=== PATIENT | male | born 1955 ===

== ENCOUNTER 2021-01-29 10:26 | Day surgery (SDC) | payer OTHER ==
[~2021-01-29] VITALS: Ht 180.3 cm; Wt 104.5 kg
[2021-01-29 09:25] VITALS: BP 154/89
[~2021-01-29 10:26] MED LIST: MIDAZolam 1 MG/ML 5ML VIAL ONE; fentaNYL/PF 50MCG/1 ML 2ML syringe ONE
[2021-01-29 10:45] VITALS: BP 145/71
[2021-01-29 10:55] VITALS: BP 119/63
[2021-01-29 11:05] VITALS: BP 111/69
[2021-01-29 11:15] VITALS: BP 125/63
== END 2021-01-29 11:20 | disposition home or self-care (01) ==
LOC: GI LAB 10:26 → EEVIPCON 10:30 → GI LAB 11:20
PROVIDERS: ATTEND Internal Medicine Gastroenterology
DX: K59.00 Constipation, unspecified (principal); D12.0 Benign neoplasm of cecum; D12.2 Benign neoplasm of ascending colon; K63.89 Other specified diseases of intestine; J44.9 Chronic obstructive pulmonary disease, unspecified; F17.210 Nicotine dependence, cigarettes, uncomplicated; Z79.899 Other long term (current) drug therapy
CPT/HCPCS: 45385; 99152; 99153; C1773; J2250; J3010; J7040; A4620